=== PATIENT | male | born 1985 | race Hispanic/Latino ===

== ENCOUNTER 2021-05-27 00:13 | Emergency (ER) | payer SELFPAY ==
[~2021-05-27] VITALS: Ht 274.3 cm; Wt 65.0 kg
[2021-05-27] MEDS ORDERED: DIABETIC MEDICATION (00:28)
[2021-05-27 00:51] LABS: HEMOGLOBIN 14.3 g/dl (14.0-18.0); IMMATURE GRANULOCYTES 0.7 % (0.0-5.0); MEAN CELL VOLUME 86.1 fL CALC (80.0-100.0); MEAN CORPUSCULAR HGB CONC 34.9 g/dL CAL (32.0-36.0); NEUT# 3.61 thou/uL (1.82-7.42); RED BLOOD COUNT 4.76 mill/uL (4.70-6.10); RED CELL DISTRI WIDTH 12.3 % (11.5-15.5)
[2021-05-27 00:54] LABS: URINE BILIRUBIN - DIPSTICK NEGATIVE (NEGATIVE); URINE BLOOD DIPSTICK NEGATIVE (NEGATIVE); URINE COLOR YELLOW; URINE GLUCOSE - DIPSTICK NEGATIVE (NEGATIVE); URINE KETONE NEGATIVE (NEGATIVE); URINE LEUK ESTERASE NEGATIVE (NEGATIVE); URINE PROTEIN - DIPSTICK NEGATIVE (NEG-TRACE); URINE SPECIFIC GRAVITY <=1.005; URINE UROBILINOGEN - DIPSTICK 0.2 E.U./dL (0.2)
[2021-05-27 00:58] LABS: URINE NITRITE - DIPSTICK NEGATIVE (Negative)
[2021-05-27 01:06] LABS: ALBUMIN 4.6 g/dL (3.2-5.0); ALKALINE PHOSPHATASE 129 u/l (38-126); ANION GAP 19 (6-22 (CALC)); BILIRUBIN, TOTAL 0.4 mg/dL (0.0-1.4); BUN 17 mg/dL (9-20); BUN/CREATININE RATIO 25 (12-20 (CALC)); CARBON DIOXIDE 21 mmol/l (22-30); CHLORIDE 110 mmol/l (95-108); CREATININE 0.7 mg/dL (0.7-1.3); GFR > 60 ML/MIN (>=60 (CALC)); GFR FOR AFR.AMER. > 60 ML/MIN (>=60 (CALC)); POTASSIUM 3.7 mmol/l (3.5-5.1); SGOT/AST 38 u/l (17-59); SODIUM 146 mmol/l (137-146); TOTAL PROTEIN 7.5 g/dL (6.3-8.2)
[2021-05-27 01:16] LABS: ETHYL ALCOHOL 328 mg/dl (0-30)
[2021-05-27] MEDS ORDERED: NORVASC2.5 M1 PO (16:57)
[2021-05-27] MEDS ORDERED: DIPHENHYDRAM50 M2 PO (16:59)
[2021-05-27] MEDS ORDERED: NEURONTIN250 MG/5 M PO (17:00)
[2021-05-27] MEDS ORDERED: FAMOTIDINE20 M1 PO (17:03)
[2021-05-27 18:26] VITALS: BP 123/83
== END 2021-05-27 18:26 | disposition home or self-care (01) | DRG 914 ==
LOC: ED 00:13 → EDBD 01:48 → ED 01:48
PROVIDERS: Emergency Medicine
DX: S09.90XA Unspecified injury of head, initial encounter (principal); F10.129 Alcohol abuse with intoxication, unspecified; E11.9 Type 2 diabetes mellitus without complications; Y04.0XXA Assault by unarmed brawl or fight, initial encounter; Y92.524 Gas station as the place of occurrence of the external cause